=== PATIENT | male | born 1985 | race Caucasian/White ===

== ENCOUNTER 2022-09-04 07:48 | Outpatient (CLI) | payer OTHER, SELFPAY ==
[2022-09-04 09:16] LABS: Albumin* 4.5 g/dL (3.3-5.0)
[2022-09-04 09:17] LABS: Chloride* 106 mmol/L (96-114); Potassium* 3.9 mmol/L (3.6-5.1)
[2022-09-04 09:18] LABS: Sodium* 141 mmol/L (135-149)
[2022-09-04 09:19] LABS: Bilirubin Total* 0.9 mg/dL (0.1-1.5); Carbon Dioxide* 28 mmol/L (20-32); Cholesterol* 214 mg/dL (90-199); Creatinine* 0.8 mg/dL (0.5-1.5); Estimated Glomerular Filt Rate 115 ml/min
[2022-09-04 09:20] LABS: Alkaline Phosphatase* 105 U/L (40-150); Aspartate Amino Transferase* 25 U/L (12-35); Blood Urea Nitrogen* 13 mg/dL (5-24); Glucose* 102 mg/dL (60-115); Total Protein* 7.2 g/dL (6.0-8.3); Triglycerides* 216 mg/dL (40-149)
[2022-09-04 09:21] LABS: Alanine Aminotransferase* 35 U/L (4-50); Calcium* 8.9 mg/dL (8.4-10.6); HDL Cholesterol* 31 mg/dL (>=40); LDL Cholesterol Calculated 140 mg/dL (<100)
== END 2022-09-04 07:49 | disposition home or self-care (01) ==
LOC: NFLDREF 07:49
PROVIDERS: PCP Family Medicine; Visit Provider Family Medicine
DX: E78.5 Hyperlipidemia, unspecified (principal)
CPT/HCPCS: 80053; 80061

== ENCOUNTER 2023-10-23 11:10 | Outpatient (CLI) | payer BC, SELFPAY | END 2023-10-23 11:11 | disposition home or self-care (01) | LOC: NFLDREF 11-08 06:48 | PROVIDERS: PCP Family Medicine; Referring Provider Family Medicine; Visit Provider Family Medicine | DX: E78.5 Hyperlipidemia, unspecified (principal); I10 Essential (primary) hypertension | CPT/HCPCS: 80053; 80061 ==

== ENCOUNTER 2023-11-06 11:54 | Outpatient (CLI) | payer BC, SELFPAY ==
[2023-11-06] MEDS: PERFLUTREN LIPID MICROSPHERES 2 ML VIAL IV (13:10)
[2023-11-06 14:01] VITALS: BP 153/84; PULSE 92
--- NOTE | 2023-11-06 15:03 | PM.ST ---
Stress Test Note Date Date Seen: 11/06/23 Date of test: 11/06/23 Providers Primary care provider: Sundeep Springer Stress test physician: Silvino Barbosa Stress Test Note Stress test ordered: Stress Echo Indication for test: Dyspnea Stress test medicine: Definrenetta Results discussion: Patient is a very nice gentleman who presents for the above test after discussion the risks benefits and side effects and review of the cardiac stress test medical history form he would like to continue. Pretest EKG shows normal sinus rhythm with a ventricular rate of 73 and a blood pressure 161/92. No acute ST wave changes are noted. Following standard Mushtaq protocol patient is exercised for 7 minutes 9 seconds, and achieved a metabolic equivalent of 8.5 Mets, his maximum heart rate was 164. Test is terminated because of fatigue and shortness of breath. During this test there is no so appreciable ST wave changes suggestive of ischemia, there is no dysrhythmias. Subjectively test was positive for inducement of shortness of breath. Impression: Positive stress test with subjective inducement of shortness of breath, no objective electrographic changes. Follow up suggested: Await echo images, definity was used with this test. Clinical correlation will be needed, await Cardiology interpretation of the echo. Patient left this testing facility at baseline but back to normal state
== END 2023-11-06 11:55 | disposition home or self-care (01) ==
LOC: STRESS 11:55
PROVIDERS: PCP Family Medicine; Visit Provider Family Medicine
DX: R06.09 Other forms of dyspnea (principal); R07.9 Chest pain, unspecified
CPT/HCPCS: 93016; 93325; 93351; Q9957

== ENCOUNTER 2024-12-07 22:50 | Emergency (ER) | payer BC, SELFPAY ==
--- OUTSIDE RECORDS SUMMARY | 2024-12-07 22:52 | XMS_ITS | Clinical Summary ---
Author Organization [facility] Address [address] [place] [id number] Care Team Providers Care Manager Erp Name Role Phone Dona Mayberry NP Primary Care Provider Allergies No known active allergies Medications sulfacetamide (BLEPH-10) 10 % ophthalmic solutionIndications :Acute bacterial conjunctivitis of both eyes Place 1 Drop into both eyes 4 times daily. Use until symptom free. 1 Bottle 7 Active Active Problems Problem Noted Date Diagnosed Date Sleep apnea 12/05/2013 Hyperlipidemia Diverticulosis Immunizations Immunization Administration Dates Next Due Influenza, IIV4 06/11/2014 Tdap 09/25/2014 Family History Medical History Relation Name Comments Diabetes Mother Heart Disease Mother Relation Name Status Comments Mother Social History Tobacco Use Types Packs/Day Years Used Date Smoking Tobacco: Some Days Cigarettes 0.2 10 Smokeless Tobacco: Never Tobacco Cessation:Ready to Q uit: No; Counseling Given: Yes Alcohol Use Standard Drinks/Week Comments Yes 0 (1 standard drink = 0.6 oz pur e alcohol) occasionally Sex and Gender Information Value Date Recorded Sex Assigned at Not on file Legal Sex Male 7:03 AM [facility]ARKER Gender Identity Not on file Sexual Orientation Not on file Occupation Industry Job Start Date Job End Date [employer] Not on file Not on file Not on file Obstetrics History Last Filed Vital Signs Vital Sign Reading Time Taken Comments Blood Pressure 132/82 09/16/2016 9:23 AM LINEMARKER Pulse 84 09/16/2016 9:23 AM [facility]EMARKER Temperature 36.7 C (98 F) 01/23/2015 2:31 PM CDT Respiratory Rate 18 09/16/2016 9:23 AM LINEMARKER Oxygen Saturation 98% 01/23/2015 2:31 PM CDT ra Inhaled Oxygen Concentration - - Weight 123.1 kg (271 lb 4.8 oz) 09/16/2016 9:23 AM LINEMARKER Height 172.4 cm (5' 7.87) 12/05/2013 4:24 PM CD T Body Mass Index 41.4 12/05/2013 4:24 PM CDT Plan of Treatment Health Maintenance Due Date Last Done Comments Depression screening for age 12+ 1995 HIV for age 15-65 1998 BMI (ht and wt on same day) for age 18+ 2001 Hepatitis C screening for age 18-79 2001 Lipids for age 35-44 10/29/2019 10/28/2014, 10/07/2012, 10/07/2012, Additional history exists COVID-19 vaccine series ( season) 2024 Tetanus booster 09/25/2024 09/25/2014 Influenza Vaccine (Season Ended) 2025 06/11/2014 Tdap Completed 09/25/2014 Pneumococcal series for age 6-49 Aged Out No longer eligible based on patient's age to complete this topic Procedures Procedure Name Priority Date/Time Associated Diagnosis Comments LIPID PANEL Routine 10/28/2014 4:20 PM [facility]ER Hyperlipidemia from Last 3 Months or Most Recently Relevant to Health Maintenance Results * (ABNORMAL) LIPID PANEL (10/28/2014 4:20 PM LINEMARKER) CHOLESTEROL,TOTAL 248(H) 100 - 199 mg/dL 10/28/2014 10:27 PM [facility] TRIGLYCERIDES 426(H) <150 mg/dL 10/28/2014 10:27 PM [facility] HDL CHOLESTEROL 28(L) >40 mg/dL 5 10:27 PM [facility] NON-HDL CHOLESTEROL 220(H) <145 mg/dl 10/28/2014 10:27 PM [facility] CHOL/HDL RATIO 8.86(H) <4.50 10/28/2014 10:27 PM [facility] LDL CHOLESTEROL 5 10:27 PM [facility] Comment:Invalid LDL when Tri g >400. PATIENT STATUS FASTING 10/28/2014 10:27 PM [facility] Blood specimen (specimen) BLOOD SPECIMEN / Unknown Venipuncture / Unknown 10/28/2014 4:20 PM [facility]ARKER 10/28/2014 4:20 PM [facility]ARKER us Kirill Collins MD CHEMISTRY Final Result [facility] [address] [place] [address], [place] from Last 3 Months or Most Recently Relevant to Health Maintenance Insurance Care Teams Manager Erp Relationship Specialty Start Date End Date Dona Mayberry NP PCP - General Internal Medicine 01/25/15
[2024-12-07 23:06] VITALS: BP 208/127; PULSE 97; RESP 16; TEMP 36.5; O2SAT 94; BMI 40.7
--- NOTE | 2024-12-07 23:20 | ED_ITS ---
HPI - General Adult General Time Seen by Provider: 23:20 <Shayy Belcher MD - Last Filed: 12/08/24 01:06> Date Seen: 12/07/24 <Shayy Belcher MD - Last Filed: 12/08/24 01:06> Chief complaint: Hypertension <Shayy Belcher MD - Last Filed: 12/08/24 01:06> Stated complaint: Blood Pressure 220/106 <Shayy Belcher MD - Last Filed: 12/08/24 01:06> Time Seen by Provider: 12/07/24 23:20 <Shayy Belcher MD - Last Filed: 12/08/24 01:06> Source: patient, RN notes reviewed and old records reviewed <Shayy Belcher MD - Last Filed: 12/08/24 01:06> Mode of arrival: ambulatory <Shayy Belcher MD - Last Filed: 12/08/24 01:06> Limitations: no limitations <Shayy Belcher MD - Last Filed: 12/08/24 01:06> History of Present Illness HPI narrative: Deejay is a very pleasant 39-year-old gentleman with a history of hyperlipidemia, hypertension currently on atorvastatin and losartan who comes to the emergency room with complaints of shortness of breath. Patient notes that he and his for sexually active this evening and at approximately 0930 following this he had the sudden onset of she has extreme shortness of breath that actually dropped him to his knees because he thought he was going to pass out. He states he could not catch his breath. This was not associated with any chest pain but was associated with some phlegm in his throat and a new cough. He states that at rest he feels fine but notes that when he was walking in he did become more short of breath. Notes he has been fatigued for quite a few months. States he is supposed to be on 2 blood pressure medications but he discontinued 1 of them. According to the chart he is supposed to be on amlodipine 10 mg daily and losartan 25 mg daily it appears that he has not been taking his amlodipine. Deejya states that he had a stress test a year ago that was ?okay?. He denies any drug use. He quit smoking 2 years ago. He also notes that he has had some headaches in the past associated with sexual activity. He notes he had a violent headache to the point where he had to stop. He notes the last time this happened was a few months ago. He denies headache tonight. He is feeling lightheaded. <Shayy Belcher MD - Last Filed: 12/08/24 01:06> Related Data Home medications: Previous Rx's ?Medication ?Instructions ?Recorded atorvastatin 40 mg tablet 40 mg PO QPM #90 tabs 12/01/24 doxycycline hyclate 100 mg capsule 100 mg PO BID 7 days #14 caps 12/08/24 losartan 100 1 tab PO DAILY #90 tabs 12/08/24 mg-hydrochlorothiazide 25 mg tablet <Shayy Belcher MD - Last Filed: 12/08/24 01:06> Allergies/adverse reactions: Allergies Allergy/AdvReac Type Severity Reaction Status Date / Time amlodipine AdvReac Mild Arthralgia Verified 12/08/24 01:12 <Shayy Belcher MD - Last Filed: 12/08/24 01:06> Review of Systems Status of ROS: Reports: 10 or more systems reviewed and unremarkable except as noted in History and below <Shayy Belcher MD - Last Filed: 12/08/24 01:06> Const: Denies: fever or chills <Shayy Belcher MD - Last Filed: 12/08/24 01:06> ENMT: Denies: throat pain, neck pain or nasal congestion <Shayy Belcher MD - Last Filed: 12/08/24 01:06> Cardio: Reports: shortness of breath with exertion; Denies: chest pain <Shayy Belcher MD - Last Filed: 12/08/24 01:06> Resp: Reports: shortness of breath and cough <Shayy Belcher MD - Last Filed: 12/08/24 01:06> GI: Denies: abdominal pain, nausea, vomiting, diarrhea or blood in stool <Shayy Belcher MD - Last Filed: 12/08/24 01:06> : Denies: painful urination or urinary frequency <Shayy Belcher MD - Last Filed: 12/08/24 01:06> Musculo: Denies: back pain or neck pain <Shayy Belcher MD - Last Filed: 12/08/24 01:06> Integ/Breast: Denies: rash <Shayy Belcher MD - Last Filed: 12/08/24 01:06> Neuro: Denies: headache or numbness in extremities <Shayy Belcher MD - Last Filed: 12/08/24 01:06> PFSH [facility] Social History: Social History What is your current living situation?: I presently have a place to live Problems where you live: no known problems In the past 12 months, utilities in danger of being shut off: no In past 12 months, lack of transportation kept you from medical appts, meetings, work, or getting things needed for daily living: no In the past 12 mos, have been you worried that your food would run out before you had money to buy more?: never true In the past 12 mos, the food you bought just didn't last and you didn't have money to buy more?: never true Smoking Status: Former smoker How often does anyone, including family, friends and others, physically hurt you : never How often does anyone, including family, friends and others, insult or talk down to you: never How often does anyone, including family, friends and others, threaten you with harm: never How often does anyone, including family, friends and others, scream or curse at you: never <Shayy Belcher MD - Last Filed: 12/08/24 01:06> Exam Narrative: Exam Narrative: Deejay is alert and oriented. No acute distress. EOM is full. Face symmetrical. Mentating normally. Neck is supple. Heart with regular rate and rhythm. Lungs are clear bilaterally. Abdomen is obese soft nontender without pulsating mass. Lower extremities without edema. Moving all extremities. <Shayy Belcher MD - Last Filed: 12/08/24 01:06> Const: Vital Signs, click to edit/add: Vital Signs - 24 hr 12/07/24 23:06 12/08/24 00:15 12/08/24 00:31 Temperature 97.7 F Pulse Rate 85 84 Pulse Rate [Pulse Oximeter] 97 Respiratory Rate 16 Blood Pressure Blood Pressure [Ri ght Upper Arm] 208/127 H Pulse Oximetry 94 96 96 Oxygen Delivery Me thod Room Air 12/08/24 00:32 12/08/24 00:33 12/08/24 00:45 Temperature Pulse Rate 88 83 85 Pulse Rate [Pulse Oximeter] Respiratory Rate 24 19 Blood Pressure 158/94 H Blood Pressure [Ri ght Upper Arm] Pulse Oximetry 95 98 94 Oxygen Delivery Me thod 12/08/24 01:00 12/08/24 01:02 12/08/24 01:03 Temperature Pulse Rate 83 80 98 Pulse Rate [Pulse Oximeter] Respiratory Rate 17 13 8 L Blood Pressure 164/89 H Blood Pressure [Ri ght Upper Arm] Pulse Oximetry 92 93 95 Oxygen Delivery Me thod 12/08/24 01:15 12/08/24 01:30 12/08/24 01:32 Temperature Pulse Rate 76 Pulse Rate [Pulse Oximeter] Respiratory Rate 24 11 L 21 Blood Pressure 169/107 H Blood Pressure [Ri ght Upper Arm] Pulse Oximetry 94 Oxygen Delivery Me thod <Shayy Belcher MD - Last Filed: 12/08/24 01:06> Vital Signs, click to edit/add: Vital Signs - 24 hr 12/07/24 23:06 12/08/24 00:15 12/08/24 00:31 Temperature 97.7 F Pulse Rate 85 84 Pulse Rate [Pulse Oximeter] 97 Respiratory Rate 16 Blood Pressure Blood Pressure [Ri ght Upper Arm] 208/127 H Pulse Oximetry 94 96 96 Oxygen Delivery Me thod Room Air 12/08/24 00:32 12/08/24 00:33 12/08/24 00:45 Temperature Pulse Rate 88 83 85 Pulse Rate [Pulse Oximeter] Respiratory Rate 24 19 Blood Pressure 158/94 H Blood Pressure [Ri ght Upper Arm] Pulse Oximetry 95 98 94 Oxygen Delivery Me thod 12/08/24 01:00 12/08/24 01:02 12/08/24 01:03 Temperature Pulse Rate 83 80 98 Pulse Rate [Pulse Oximeter] Respiratory Rate 17 13 8 L Blood Pressure 164/89 H Blood Pressure [Ri ght Upper Arm] Pulse Oximetry 92 93 95 Oxygen Delivery Me thod 12/08/24 01:15 12/08/24 01:30 12/08/24 01:32 Temperature Pulse Rate 76 Pulse Rate [Pulse Oximeter] Respiratory Rate 24 11 L 21 Blood Pressure 169/107 H Blood Pressure [Ri ght Upper Arm] Pulse Oximetry 94 Oxygen Delivery Me thod <Jade Jules MD - Last Filed: 12/08/24 01:46> Documenting provider has reviewed patient's vital signs: yes <Shayy Belcher MD - Last Filed: 12/08/24 01:06> Course Course ED Course: Differential diagnosis includes but is not limited to hypertension, acute coronary event, PE, pneumonia, new onset viral symptoms. Will place an IV and draw labs to include CBC, comprehensive, troponin, D-dimer, proBNP. We will do chest x-ray EKG and continue on powder loader. <Shayy Belcher MD - Last Filed: 12/08/24 01:06> Reevaluation(s) Time of Reevaluation #1: 01:18 <Jade Jules MD - Last Filed: 12/08/24 01:46> Reevaluation #1: Dr. Jules- I assumed care from Dr. Kirkland. Patient with elevated blood pressures, persistently elevated even on repeat checks. Symptoms of exertional headache, exertional shortness of breath. Chest x-ray does show a new early patchy pneumonia. He was given atenolol which has improved his blood pressures to the 160s over 80s, tolerated well and the headache is now gone. Lab workup is quite reassuring. No signs of significant cardiomegaly. EKG is reviewed as well, reassuring. Set on talk with the patient for a while. It looks as though he self discontinued his amlodipine because it was causing arthralgias. He was on a proper dose of it and a very low dose of losartan have been added and now he is only taking the low dose of losartan which would certainly explain why as hypertension is not well controlled. Counseled patient on options. I would recommend that we start him on a proper dose of the losartan and add hydrochlorothiazide. He was agreeable to this. Losartan 100/hydrochlorothiazide 25 sent to pharmacy. He will start with a half a pill once daily for the 1st 4 days and then increase to a full pill daily. Typical side effects reviewed, alarm symptoms reviewed as well. For the infiltrate seen on chest x-ray, he declined a viral swab so I have to assume that this is bacterial. Will start doxycycline, 1st dose given here in the ED. Alarm symptoms reviewed regarding this diagnosis as well. Patient would likely benefit from a sleep study if he has not already had 1. Encouraged him to discuss all of these things at his follow-up appointment that he is to make with a primary care provider for his annual exam in 2-4 weeks. Unlike to ensure that there has been enough time to fully heal the pneumonia and for him to become stable on the antihypertensive prior to re-evaluation. He verbalizes understanding and agreement. Script sent to pharmacy <Jade Jules MD - Last Filed: 12/08/24 01:46> Vital Signs Vital signs: Initial Vital Signs Temperature 97.7 F 12/07/24 23:06 Temperature Source Temporal Artery Scan 12/07/24 23:06 Pulse Rate 97 12/07/24 23:06 Respiratory Rate 16 12/07/24 23:06 Blood Pressure 208/127 H 12/07/24 23:06 Blood Pressure Mean 154 H 12/07/24 23:06 Blood Pressure Position High-Fowlers 12/07/24 23:06 Pulse Oximetry 94 12/07/24 23:06 Oxygen Delivery Method Room Air 12/07/24 23:06 Vital Signs Temperature 97.7 F 12/07/24 23:06 Pulse Rate 97 12/07/24 23:06 Respiratory Rate 16 12/07/24 23:06 Blood Pressure 208/127 H 12/07/24 23:06 Pulse Oximetry 94 12/07/24 23:06 Oxygen Delivery Method Room Air 12/07/24 23:06 Temperature 97.7 F 12/07/24 23:06 Pulse Rate 76 12/08/24 01:15 Respiratory Rate 21 12/08/24 01:32 Blood Pressure 169/107 H 12/08/24 01:32 Pulse Oximetry 94 12/08/24 01:15 Oxygen Delivery Method Room Air 12/07/24 23:06 <Shayy Belcher MD - Last Filed: 12/08/24 01:06> Initial Vital Signs Temperature 97.7 F 12/07/24 23:06 Temperature Source Temporal Artery Scan 12/07/24 23:06 Pulse Rate 97 12/07/24 23:06 Respiratory Rate 16 12/07/24 23:06 Blood Pressure 208/127 H 12/07/24 23:06 Blood Pressure Mean 154 H 12/07/24 23:06 Blood Pressure Position High-Fowlers 12/07/24 23:06 Pulse Oximetry 94 12/07/24 23:06 Oxygen Delivery Method Room Air 12/07/24 23:06 Vital Signs Temperature 97.7 F 12/07/24 23:06 Pulse Rate 97 12/07/24 23:06 Respiratory Rate 16 12/07/24 23:06 Blood Pressure 208/127 H 12/07/24 23:06 Pulse Oximetry 94 12/07/24 23:06 Oxygen Delivery Method Room Air 12/07/24 23:06 Temperature 97.7 F 12/07/24 23:06 Pulse Rate 76 12/08/24 01:15 Respiratory Rate 21 12/08/24 01:32 Blood Pressure 169/107 H 12/08/24 01:32 Pulse Oximetry 94 12/08/24 01:15 Oxygen Delivery Method Room Air 12/07/24 23:06 <Jade Jules MD - Last Filed: 12/08/24 01:46> Medications Administered Medications: Discontinued Medications Generic Name Dose Route Start Last Admin Trade Name Freq PRN Reason Stop Dose Admin Atenolol 50 mg 12/08/24 00:26 12/08/24 00:36 Atenolol 50 Mg Tablet PO 12/08/24 00:27 50 mg ONCE ONE Administration Doxycycline Hyclate 100 mg 12/08/24 01:01 12/08/24 01:27 Doxycycline Hyclate 100 Mg PO 12/08/24 01:02 100 mg ONCE ONE Administration <Shayy Belcher MD - Last Filed: 12/08/24 01:06> Discontinued Medications Generic Name Dose Route Start Last Admin Trade Name Freq PRN Reason Stop Dose Admin Atenolol 50 mg 12/08/24 00:26 12/08/24 00:36 Atenolol 50 Mg Tablet PO 12/08/24 00:27 50 mg ONCE ONE Administration Doxycycline Hyclate 100 mg 12/08/24 01:01 12/08/24 01:27 Doxycycline Hyclate 100 Mg PO 12/08/24 01:02 100 mg ONCE ONE Administration <Jade Jules MD - Last Filed: 12/08/24 01:46> Medical Decision Making MDM Narrative Medical decision making narrative: 1. Hypertension -S nursing staff to do Q 15 blood pressures. Will hold off on any medication until we have established serial readings. 2. History of post coital headaches-head CT at this time although out to be clear no headache this evening. 3. Shortness of breath with exertion-cardiac workup including chest x-ray. 4. Disposition -this patient is signed out to my partner Dr. Jules for review of laboratory findings, radiological studies and disposition. <Shayy Belcher MD - Last Filed: 12/08/24 01:06> Medical Records Medical records reviewed: Yes I reviewed the patient's medical records <Shayy Belcher MD - Last Filed: 12/08/24 01:06> Lab Data Lab results reviewed: Yes I reviewed the patient's lab results <Jade Jules MD - Last Filed: 12/08/24 01:46> Lab results narrative: Labs all reassuring. <Jade Jules MD - Last Filed: 12/08/24 01:46> Labs: Lab Results 12/07/24 12/08/24 Range/Units 00:08 00:08 WBC 8.68 (4.50-11.00) K/uL RBC 5.91 H (4.30-5.90) m/uL Hgb 15.8 (13.5-17.5) gm/dL Hct 46.5 (37.0-53.0) % MCV 79 L (80-100) fL MCH 27 (26-34) pg MCHC 34 (32-36) gm/dL RDW Coeff of Marleen 13.1 (11.5-15.5) % Plt Count 210 (140-440) K/uL Neut % (Auto) 68.3 (42.0-72.0) % Lymph % (Auto) 22.4 (20-44) % Bradford % (Auto) 5.9 (0.0-11.0) % Eos % (Auto) 2.1 (0.0-7.0) % Baso % (Auto) 0.1 (0.0-3.0) % Neut # (Auto) 5.94 (1.7-7.0) K/uL Lymph # (Auto) 1.94 (0.90-2.90) K/uL Bradford # (Auto) 0.50 (0.00-0.90) K/UL Eos # (Auto) 0.18 (0.00-0.50) K/uL Baso # (Auto) 0.01 (0.00-0.30) K/uL Abs Immat Gran (auto) 0.10 (0.00-0.30) K/uL Imm/Tot Granulo (auto) 1.2 % D-Dimer Quant (PE/DVT) 0.22 (0.00-0.50) ug/ml Sodium 141 (135-149) mmol/L Potassium 3.2 L (3.6-5.1) mmol/L Chloride 103 (96-114) mmol/L Carbon Dioxide 27 (20-32) mmol/L Anion Gap 11 (7-15) mEq/L BUN 16 (5-24) mg/dL Creatinine 0.8 (0.5-1.5) mg/dL Estimated Creat Clear 117.56 Estimated GFR 114 ml/min Glucose 127 H (60-115) mg/dL Calcium 9.4 (8.4-10.6) mg/dL Total Bilirubin 0.7 (0.1-1.5) mg/dL AST 29 (12-35) U/L ALT 46 (4-50) U/L Alkaline Phosphatase 106 (40-150) U/L NT-Pro-B Natriuret Pep 382 pg/mL Total Protein 7.6 (6.0-8.3) g/dL Albumin 4.7 (3.3-5.0) g/dL POC Troponin I 0.02 (0.01-0.04) ng/ml <Shayy Belcher MD - Last Filed: 12/08/24 01:06> Lab Results 12/07/24 12/08/24 Range/Units 00:08 00:08 WBC 8.68 (4.50-11.00) K/uL RBC 5.91 H (4.30-5.90) m/uL Hgb 15.8 (13.5-17.5) gm/dL Hct 46.5 (37.0-53.0) % MCV 79 L (80-100) fL MCH 27 (26-34) pg MCHC 34 (32-36) gm/dL RDW Coeff of Marleen 13.1 (11.5-15.5) % Plt Count 210 (140-440) K/uL Neut % (Auto) 68.3 (42.0-72.0) % Lymph % (Auto) 22.4 (20-44) % Bradford % (Auto) 5.9 (0.0-11.0) % Eos % (Auto) 2.1 (0.0-7.0) % Baso % (Auto) 0.1 (0.0-3.0) % Neut # (Auto) 5.94 (1.7-7.0) K/uL Lymph # (Auto) 1.94 (0.90-2.90) K/uL Bradford # (Auto) 0.50 (0.00-0.90) K/UL Eos # (Auto) 0.18 (0.00-0.50) K/uL Baso # (Auto) 0.01 (0.00-0.30) K/uL Abs Immat Gran (auto) 0.10 (0.00-0.30) K/uL Imm/Tot Granulo (auto) 1.2 % D-Dimer Quant (PE/DVT) 0.22 (0.00-0.50) ug/ml Sodium 141 (135-149) mmol/L Potassium 3.2 L (3.6-5.1) mmol/L Chloride 103 (96-114) mmol/L Carbon Dioxide 27 (20-32) mmol/L Anion Gap 11 (7-15) mEq/L BUN 16 (5-24) mg/dL Creatinine 0.8 (0.5-1.5) mg/dL Estimated Creat Clear 117.56 Estimated GFR 114 ml/min Glucose 127 H (60-115) mg/dL Calcium 9.4 (8.4-10.6) mg/dL Total Bilirubin 0.7 (0.1-1.5) mg/dL AST 29 (12-35) U/L ALT 46 (4-50) U/L Alkaline Phosphatase 106 (40-150) U/L NT-Pro-B Natriuret Pep 382 pg/mL Total Protein 7.6 (6.0-8.3) g/dL Albumin 4.7 (3.3-5.0) g/dL POC Troponin I 0.02 (0.01-0.04) ng/ml <Jade Jules MD - Last Filed: 12/08/24 01:46> Imaging Data Chest x-ray: Attestation: I have reviewed the pertinent imaging results. <Shayy Belcher MD - Last Filed: 12/08/24 01:06> My impression: Faint infiltrate left mid to lower lung benjamin. No signs of acute cardiac process, cardiac enlargement, pleural effusion or pneumothorax. <Jade Jules MD - Last Filed: 12/08/24 01:46> Radiologist's impression: Findings/Impression: The heart is not abnormally enlarged. The trachea is midline. Mediastinal contours are grossly within normal limits. Mild patchy left lung base opacification may reflect developing infectious process versus atelectasis. No pleural effusion or pneumothorax. No acute osseous abnormality. Dictated by Yared Oliva MD @ 12/08/2024 12:01:01 AM <Jade Jules MD - Last Filed: 12/08/24 01:46> CT scan - head: Attestation: I have reviewed the pertinent imaging results. <Shayy Belcher MD - Last Filed: 12/08/24 01:06> My impression: Normal head CT <Jade Jules MD - Last Filed: 12/08/24 01:46> Radiologist's impression: IMPRESSION: No acute intracranial abnormality. Please note that all CT scans at this facility use dose modulation, iterative reconstruction, and/or weight-based dosing when appropriate to reduce radiation dose to as low as reasonably achievable. Dictated by Yared Oliva MD @ 12/08/2024 12:03:08 AM <Jade Jules MD - L ast Filed: 12/08/24 01:46> ECG Data Attestation: I personally reviewed and interpreted this ECG as follows: <Shayy Belcher MD - Last Filed: 12/08/24 01:06> Interpretation: EKG by my read shows sinus rhythm at a rate of 85 T-wave inversion noted in aVL. Do not note any other acute ST or T-wave changes. QT and SD intervals within normal limits. <Shayy Belcher MD - Last Filed: 12/08/24 01:06> Discharge Plan Discharge Clinical Impression: Community acquired pneumonia, Uncontrolled hypertension <Shayy Belcher MD - Last Filed: 12/08/24 01:06> Patient Disposition: Home, Self-Care <Shayy Belcher MD - Last Filed: 12/08/24 01:06> Instructions: Community Acquired Pneumonia (DC) <Shayy Belcher MD - Last Filed: 12/08/24 01:06> Additional Instructions: As we discussed, your chest x-ray does show a mild early pneumonia in the left side. I have started you on an antibiotic, doxycycline. Take 1 pill 2 times daily for an additional week. Your next dose will be this afternoon. Your given your 1st dose here in the emergency department. Most of your symptoms seem related to uncontrolled high blood pressure. You are on a very small dose of the losartan. I would recommend that we just switch you to a proper adult dose of this medication. I have sent this to your pharmacy. I would recommend that you take half a pill nightly for the 1st 4 days, then increase to a full pill. This will be combined with a slight water pill that will help pull some of the salt from your system. This will also help lower your blood pressure more consistently. I am hopeful that your symptoms will improve markedly over the next few weeks. I would like for you to make a follow-up appointment with your primary care doctor in 2-4 weeks for your annual exam. He can recheck your blood pressure and see how the new medication is going. If we over shot things, we could dial back a little bit otherwise, if not quite at goal yet, you have tolerated the atenolol well here in the emergency room and that would be an excellent additional therapy for you. The remainder of your labs looked good. If you have severe shortness of breath, neurological changes or other worrisome findings, I would recommend re-evaluation in the emergency department. <Shayy Belcher MD - Last Filed: 12/08/24 01:06> Activity Level: No Restrictions <Shayy Belcher MD - Last Filed: 12/08/24 01:06> No Restrictions <Jade Jules MD - Last Filed: 12/08/24 01:46> Prescriptions: New losartan-hydrochlorothiazide 100-25 mg tablet 1 tab PO DAILY Qty: 90 1RF doxycycline hyclate 100 mg capsule 100 mg PO BID 7 Days Qty: 14 0RF Discontinued losartan 25 mg tablet 25 mg PO QDAY Qty: 90 2RF No Action atorvastatin 40 mg tablet 40 mg PO QPM Qty: 90 0RF <Shayy Belcher MD - Last Filed: 12/08/24 01:06> Follow Up/Referrals: Sundeep Springer MD [Primary Care Provider] - <Shayy Belcher MD - Last Filed: 12/08/24 01:06> Stand Alone Forms: [facility] Info Instructions <Shayy Belcher MD - Last Filed: 12/08/24 01:06>
--- NOTE | 2024-12-07 23:30 | CRLHL7_ITS ---
For Patients: As a result of the Century Cures Act, medical imaging exams and procedure reports are released immediately into your electronic medical record. You may view this report before your referring provider. If you have questions, please contact your health care provider. Indication: Shortness of breath. Technique: Chest 1 view. Comparison: Chest x-ray 01/24/2022. Findings/Impression: The heart is not abnormally enlarged. The trachea is midline. Mediastinal contours are grossly within normal limits. Mild patchy left lung base opacification may reflect developing infectious process versus atelectasis. No pleural effusion or pneumothorax. No acute osseous abnormality. Dictated by Yared Oliva MD @ 12/08/2024 12:01:01 AM (Electronically Signed)
--- NOTE | 2024-12-07 23:36 | CRLHL7_ITS ---
For Patients: As a result of the Century Cures Act, medical imaging exams and procedure reports are released immediately into your electronic medical record. You may view this report before your referring provider. If you have questions, please contact your health care provider. INDICATION: Post coital headaches. TECHNIQUE: CT head without contrast. COMPARISON: None. FINDINGS: No acute intracranial hemorrhage. No CT evidence of acute territorial infarct. No hydrocephalus or midline shift. Normal cerebral parenchymal volume. Paranasal sinuses and mastoid air cells are well ventilated. No acute calvarial fracture. IMPRESSION: No acute intracranial abnormality. Please note that all CT scans at this facility use dose modulation, iterative reconstruction, and/or weight-based dosing when appropriate to reduce radiation dose to as low as reasonably achievable. Dictated by Yared Oliva MD @ 12/08/2024 12:03:08 AM (Electronically Signed)
--- OUTSIDE RECORDS SUMMARY | 2024-12-07 23:56 | XMS_ITS | Clinical Summary ---
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 file Not on file Not on file Obstetrics History Last Filed Vital Signs Vital Sign Reading Time Taken Comments Blood Pressure 132/82 09/16/2016 9:23 AM [employer] Pulse 84 09/16/2016 9:23 AM [employer] Temperature 36.7 C (98 F) 01/23/2015 2:31 PM CDT Respiratory Rate 18 09/16/2016 9:23 AM [employer] Oxygen Saturation 98% 01/23/2015 2:31 PM CDT ra Inhaled Oxygen Concentration - - Weight 123.1 kg (271 lb 4.8 oz) 09/16/2016 9:23 AM [employer] Height 172.4 cm (5' 7.87) 12/05/2013 4:24 [...] Comments LIPID PANEL Routine 10/28/2014 4:20 PM [employer] Hyperlipidemia from Last 3 Months or Most Recently Relevant to Health Maintenance Results * (ABNORMAL) LIPID PANEL (10/28/2014 4:20 PM [employer]PATCH[employer]) CHOLESTEROL,TOTAL 248(H) 100 - 199 mg/dL 10/28/2014 10:27 PM [employer] [facility] TRIGLYCERIDES 426(H) <150 mg/dL 10/28/2014 10:27 PM [employer] [facility] HDL CHOLESTEROL 28(L) >40 mg/dL 5 10:27 PM [employer] [facility] NON-HDL CHOLESTEROL 220(H) <145 mg/dl 10/28/2014 10:27 PM [employer] [facility] CHOL/HDL RATIO 8.86(H) <4.50 10/28/2014 10:27 PM [employer] [facility] LDL CHOLESTEROL 5 10:27 PM [employer] [facility] Comment:Invalid LDL when Tri g >400. PATIENT STATUS FASTING 10/28/2014 10:27 PM [employer] [facility] Blood specimen (specimen) BLOOD SPECIMEN / Unknown Venipuncture / Unknown 10/28/2014 4:20 PM [employer] 10/28/2014 4:20 PM [employer] us Kirill Collins MD CHEMISTRY Final Result [facility] [address] [place] [address], [place] from Last 3 Months or Most Recently Relevant to Health Maintenance Insurance Care Teams Idea Man Relationship Specialty Start Date End Date Dona Mayberry NP PCP - General Internal Medicine 01/25/15
[2024-12-08] VITALS (11 sets, daily range): BP systolic 158–169; BP diastolic 89–107; PULSE 76–98; RESP 8–24; O2SAT 92–98
[2024-12-08 00:31] LABS: Basophils Absolute Auto 0.01 K/uL (0.00-0.30); Basophils Percent Auto 0.1 % (0.0-3.0); Eosinophils Absolute Auto 0.18 K/uL (0.00-0.50); Eosinophils Percent Auto 2.1 % (0.0-7.0); Hematocrit 46.5 % (37.0-53.0); Hemoglobin* 15.8 gm/dL (13.5-17.5); Immature Granulocytes Pct Auto 1.2 %; Lymphocytes Absolute Auto 1.94 K/uL (0.90-2.90); Lymphocytes Percent Auto 22.4 % (20-44); Mean Corpuscular HGB Conc 34 gm/dL (32-36); Mean Corpuscular Hemoglobin 27 pg (26-34); Mean Corpuscular Volume 79 fL (80-100); Monocytes Percent Auto 5.9 % (0.0-11.0); Neutrophils Absolute Auto 5.94 K/uL (1.7-7.0); Neutrophils Percent Auto 68.3 % (42.0-72.0); Platelet Count* 210 K/uL (140-440); RDW Coefficient of Variation % 13.1 % (11.5-15.5); Red Blood Count 5.91 m/uL (4.30-5.90); White Blood Count* 8.68 K/uL (4.50-11.00)
[2024-12-08 00:31] LABS: Troponin, Point-of-Care* 0.02 ng/ml (0.01-0.04)
[2024-12-08 00:35] LABS: Slide Review Reflex No
[2024-12-08] MEDS: atenoloL 50 MG TABLET PO (00:36)
[2024-12-08 00:47] LABS: Albumin* 4.7 g/dL (3.3-5.0); Chloride* 103 mmol/L (96-114); Potassium* 3.2 mmol/L (3.6-5.1); Sodium* 141 mmol/L (135-149)
[2024-12-08 00:49] LABS: Blood Urea Nitrogen* 16 mg/dL (5-24); Creatinine* 0.8 mg/dL (0.5-1.5); Est. Creatinine Clearance* 117.56; Estimated Glomerular Filt Rate 114 ml/min
[2024-12-08 00:50] LABS: Alanine Aminotransferase* 46 U/L (4-50); Alkaline Phosphatase* 106 U/L (40-150); Anion Gap 11 mEq/L (7-15); Aspartate Amino Transferase* 29 U/L (12-35); Bilirubin Total* 0.7 mg/dL (0.1-1.5); Calcium* 9.4 mg/dL (8.4-10.6); Carbon Dioxide* 27 mmol/L (20-32); Glucose* 127 mg/dL (60-115); Total Protein* 7.6 g/dL (6.0-8.3)
[2024-12-08 01:15] LABS: NT Pro B Type NatriureticPept* 382 pg/mL
[2024-12-08] MEDS: DOXYCYCLINE HYCLATE 100 MG PO (01:27)
[2024-12-08 01:42] LABS: D Dimer Quantitative* 0.22 ug/ml (0.00-0.50)
== END 2024-12-08 01:58 | disposition home or self-care (01) ==
PROVIDERS: Family Medicine; Emergency Provider Family Medicine; PCP Family Medicine
DX: J18.9 Pneumonia, unspecified organism (principal); I10 Essential (primary) hypertension
CPT/HCPCS: 36415; 70450; 71045; 80053; 83880; 84484; 85025; 85379; 87631; 93005; 99284; 99285; A9270

== ENCOUNTER 2025-02-11 08:40 | Outpatient (CLI) | payer BC, SELFPAY | END 2025-02-11 08:41 | disposition home or self-care (01) | PROVIDERS: PCP Family Medicine; Visit Provider Internal Medicine | DX: I10 Essential (primary) hypertension (principal); E78.5 Hyperlipidemia, unspecified | CPT/HCPCS: 80053; 80061 ==